=== PATIENT | male | born 1980 | race Caucasian/White ===

== ENCOUNTER 2016-09-29 22:02 | Emergency (ER) | payer MEDICAID ==
[~2016-09-29] VITALS: Ht 185.4 cm; Wt 88.1 kg
[~2016-09-29 22:02] MED LIST: BISA5TAB5 PO; CARB400T4 PO; CEPH-368 PO; CLON-364 PO; LEVE500T13 PO; LISI-170 PO; OMEP-110 PO; PALI3TAB2 PO; QUET200T6 PO; TEMA30CA PO; TOPI200T6 PO; ZOLP6.253 PO; [UNRECOGNIZED DRUG - CODE] PO-COUM
[2016-09-29] MEDS ORDERED: TEMAZEPAM 30 MG CAPSULE PO ONE (23:00)
[2016-09-29 23:08] VITALS: BP 142/81
== END 2016-09-29 23:10 | disposition home or self-care (01) ==
LOC: ED 22:45
DX: Z76.0 Encounter for issue of repeat prescription (principal); I10 Essential (primary) hypertension; F31.9 Bipolar disorder, unspecified; F84.0 Autistic disorder; Z88.2 Allergy status to sulfonamides; Z88.8 Allergy status to other drugs, medicaments and biological substances
CPT/HCPCS: 99282